=== PATIENT | female | born 1960 | race Caucasian/White ===

== ENCOUNTER 2016-07-21 18:05 | Emergency (ER) | payer BC ==
[2016-07-21] MEDS ORDERED: LIPITOR (18:15)
[2016-07-21] MEDS ORDERED: HYDROCHLOROTHIAZIDE (18:15)
[2016-07-21] MEDS ORDERED: PROBIOTIC1 EAC6 PO (18:16)
[2016-07-21] MEDS ORDERED: VITAMIN D (18:16)
[2016-07-21] MEDS ORDERED: MAGNESIUM (18:16)
[2016-07-21] MEDS ORDERED: KEFLEX500 M4 PO (19:14)
== END 2016-07-21 19:50 ==
LOC: EDMED 18:05
PROC: 0HQLXZZ Repair Left Lower Leg Skin, External Approach (ICD-10-PCS; principal; 2016-07-21)
DX: S81.812A Laceration without foreign body, left lower leg, initial encounter (principal); Z23 Encounter for immunization; I10 Essential (primary) hypertension; W45.8XXA Other foreign body or object entering through skin, initial encounter; Y92.007 Garden or yard of unspecified non-institutional (private) residence as the place of occurrence of the external cause